=== PATIENT | male | born 1995 | race Caucasian/White ===

== ENCOUNTER 2017-01-06 19:11 | Emergency (ER) | payer BC, OTHER ==
[~2017-01-06] VITALS: Ht 182.9 cm; Wt 77.6 kg
[2017-01-06 19:16] VITALS: TEMP 36.7; Ht 182.9 cm; Wt 77.6 kg
--- NOTE | 2017-01-06 19:43 | EMERGENCY ROOM VISIT NOTE ---
History Report prepared by Bekah: Karina Pulido Under the Supervision of: Dr. Fadumo Campbell D.O. First contact with patient: 19:30 Chief Complaint: LACERATION/CUT (SUT/DERMABOND) Stated Complaint: GASH IN FOREHEAD Nursing Triage Summary: Patient states "I think I cut my..." Friend responded "He fell and cut his head." Denies LOC. Patient was drinking alcohol. 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 The patient was drinking alcohol earlier today when he fell face forward. He denies loss of consciousness. The patient also denies headache, neck pain, chest pain, and back pain. The patient states his tetanus shot is up to date. Pt brought in by friend. 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 A total of 10 systems reviewed and were otherwise negative. Past Medical & Surgical Medical Problems: (1) No Known Active Medical Problems Family History No pertinent family history Social History Smoking Status: Current Every Day Smoker Alcohol Use: heavy Marital Status: single Housing Status: lives with roommate Occupation Status: student Current/Historical Medications Scheduled PRN Cetirizine (Zyrtec), 10 MG PO DAILY PRN for Allergy Symptoms Allergies Coded Allergies: No Known Allergies (Unverified , 01/06/17) Physical Exam Vital Signs Date Time Temp Pulse Resp B/P Pulse Ox O2 Delivery O2 Flow Rate FiO2 01/07/17 02:12 91 111/89 01/07/17 01:04 92 14 108/49 94 Room Air 01/07/17 00:13 89 14 108/51 95 Room Air 01/06/17 23:29 90 01/06/17 23:15 90 14 127/45 95 Room Air 01/06/17 21:28 99 18 149/85 98 Room Air 01/06/17 19:16 36.7 100 16 136/88 96 Room Air Physical Exam GENERAL: alert, well appearing, well nourished, no distress, non-toxic EYE EXAM: No wilson signs, no raccoon eyes. normal conjunctiva, PERRL and EOM's grossly intact HEAD: Large subcutaneous laceration to forehead. OROPHARYNX: no exudate, no erythema, lips, buccal mucosa, and tongue normal and mucous membranes are moist NECK: No step off noted. supple, no nuchal rigidity, no adenopathy, non-tender LUNGS: Clear to auscultation. Normal chest wall mechanics HEART: no murmurs, S1 normal and S2 normal CHEST: No crepitus, no ecchymosis, no step off ABDOMEN: abdomen soft, non-tender, normo-active bowel sounds, no masses, no rebound or guarding. BACK: No step off. Back is symmetrical on inspection and there is no deformity, no midline tenderness, no CVA tenderness. SKIN: no rashes and no bruising UPPER EXTREMITIES: No evidence of trauma. upper extremities are grossly normal. LOWER EXTREMITIES: No evidence of trauma. No pitting edema. NEURO EXAM: Normal sensorium, cranial nerves II-XII grossly intact, normal speech, no gross weakness of arms, no gross weakness of legs. Gross sensation intact. Medical Decision & Procedures ER Provider Diagnostic Interpretation: Xray results per the radiologist and my interpretation. Other results have been interpreted by the radiologist and reviewed by me. HEAD CT NONCONTRAST CT DOSE: HISTORY: Trauma trauma TECHNIQUE: Multiaxial CT images of the head were performed without the use of intravenous contrast. Comparison: None. Findings: The paranasal sinuses and mastoid air cells are clear. The calvarium and skull base are intact. The ventricles and sulci are within normal limits. There is no mass, hematoma, midline shift, or acute infarct. Impression: No acute intracranial abnormality. Electronically signed by: Ta Fleming M.D. 01/06/2017 8:25 PM Dictated Date/Time: 01/06/2017 8:24 PM CHEST ONE VIEW PORTABLE CLINICAL HISTORY: trauma pain COMPARISON STUDY: No previous studies for comparison. FINDINGS: The bones soft tissues and hemidiaphragms are normal. The cardiomediastinal silhouette is normal. The lungs are clear. The pulmonary vasculature is normal. IMPRESSION: Negative chest. Electronically signed by: Ta Fleming M.D. 01/06/2017 8:14 PM Dictated Date/Time: 01/06/2017 8:[address] DOSE: 2569.59 mGy.cm HISTORY: Pain trauma TECHNIQUE: Multiaxial CT images of the cervical spine were performed and reformatted in the sagittal and coronal plane without the use of contrast. COMPARISON: None. FINDINGS: No fractures. No subluxation. Prevertebral soft tissues and the C1-C2 interval are intact. No pneumothorax. IMPRESSION: No fractures within the cervical spine. Electronically signed by: Ta Fleming M.D. 01/06/2017 8:26 PM Dictated Date/Time: 01/06/2017 8:25 PM Laboratory Results Test 01/06/17 21:30 Ethyl Alcohol mg/dL 257.0 mg/dl (0-3) Procedure Location: Forehead and Scalp Total length: 8 cm Complexity: Simple Verbal consent was obtained after the risks and benefits were explained, including but not limited to bleeding, scarring, infection, pain, and bone/joint /nerve damage. At this time, the risks of the procedure are less than the risks of NOT performing the procedure. A time out was taken and the correct patient and site identified. The skin was prepped with betadine. The target area was anesthetized with 8 ml of 1% lidocaine with epinephrine. Copious irrigation was performed using saline. The skin was re-prepped with betadine and a sterile field set. The wound was explored for foreign bodies and none found. Examination revealed no injury to deep structures such as tendons, bone, or significant blood vessels. Debridement was not performed. The wound edges were approximated using 4 arsen in scalp and 5, 5-0 simple interrupted nylon sutures in forehead region. Hemostasis and excellent approximation was achieved. Antibacterial ointment and a sterile dressing applied. Detailed wound care instructions and signs and symptoms of infection reviewed with the the patient. No complications and the patient tolerated the procedure well. ED Course 1932: The patient was evaluated in room A9B. A complete history and physical exam was performed. 2029: Lidocaine/Epinephrine 20 ml INFIL 2031: Laceration repair procedure. Please see above procedure note. 2103: The patient is waiting for a ride at this time. Clinically improving. 2124: The patient was signed out to Dr. Velasco at change of shift as he is still waiting for a sober ride. Medical Decision Ct's reassuring. Low suspicion for additional occult traumatic injury. Pt clinically improving here. No change in repeat exam. Impression Primary Impression: Laceration Additional Impressions: Closed head injury Alcohol intoxication Fall Scribe Attestation The scribe's documentation has been prepared under my direction and personally reviewed by me in its entirety. I confirm that the note above accurately reflects all work, treatment, procedures, and medical decision making performed by me. Departure Information Dispostion Still a Patient Patient Instructions [facility] Additional Instructions Please drink responsibly. Do not drink and drive. You have both stitches and arsen. These need to be removed in 7 days. If you develop headaches, vision changes, fevers, vomiting, dizziness, neck or back pain, chest pain, trouble breathing, or you have any other new or concerning symptoms, please return to the emergency room. Problem Qualifiers Additional Impressions: Closed head injury Encounter type: initial encounter Qualified Codes: S09.90XA - Unspecified injury of head, initial encounter Alcohol intoxication Complication of substance-induced condition: uncomplicated Qualified Codes: F10.120 - Alcohol abuse with intoxication, uncomplicated Fall Encounter type: initial encounter Qualified Codes: W19.XXXA - Unspecified fall, initial encounter
--- NOTE | 2017-01-06 20:16 | DIAGNOSTIC IMAGING REPORT ---
CHEST ONE VIEW PORTABLE CLINICAL HISTORY: trauma pain COMPARISON STUDY: No previous studies for comparison. FINDINGS: The bones soft tissues and hemidiaphragms are normal. The cardiomediastinal silhouette is normal. The lungs are clear. The pulmonary vasculature is normal. IMPRESSION: Negative chest. Electronically signed by: Ta Fleming M.D. 01/06/2017 8:14 PM Dictated Date/Time: 01/06/2017 8:14 PM
--- NOTE | 2017-01-06 20:27 | DIAGNOSTIC IMAGING REPORT ---
HEAD CT NONCONTRAST CT DOSE: HISTORY: Trauma trauma TECHNIQUE: Multiaxial CT images of the head were performed without the use of intravenous contrast. Comparison: None. Findings: The paranasal sinuses and mastoid air cells are clear. The calvarium and skull base are intact. The ventricles and sulci are within normal limits. There is no mass, hematoma, midline shift, or acute infarct. Impression: No acute intracranial abnormality. Electronically signed by: Ta Fleming M.D. 01/06/2017 8:25 PM Dictated Date/Time: 01/06/2017 8:24 PM
--- NOTE | 2017-01-06 20:28 | DIAGNOSTIC IMAGING REPORT ---
CERVICAL SPINE CT CT DOSE: 2569.59 mGy.cm HISTORY: Pain trauma TECHNIQUE: Multiaxial CT images of the cervical spine were performed and reformatted in the sagittal and coronal plane without the use of contrast. COMPARISON: None. FINDINGS: No fractures. No subluxation. Prevertebral soft tissues and the C1-C2 interval are intact. No pneumothorax. IMPRESSION: No fractures within the cervical spine. Electronically signed by: Ta Fleming M.D. 01/06/2017 8:26 PM Dictated Date/Time: 01/06/2017 8:25 PM
[2017-01-06] MEDS ORDERED: LIDOCAINE/EPINEPHRINE 1% 20 ML VIAL INFIL ONE (20:30)
[2017-01-06] MEDS ORDERED: CETI10TA84 PO (21:29)
[2017-01-07 01:04] VITALS: O2SAT 94
[2017-01-07 02:12] VITALS: BP 111/89; PULSE 91
--- NOTE | 2017-01-07 03:09 | EMERGENCY ROOM VISIT NOTE ---
ED Visit Note First contact with patient: 21:29 Patient was signed out to me following complete workup and being medically cleared awaiting for a sober friend or 6 AM in the morning at which time he would be sober. He was able to obtain a friend at 2 AM. The friend was present at bedside. Patient was able to get up and ambulate without difficulty. Friend's name was Tico and he agreed to assume care patient overnight. Patient will have the sutures out in 7 days. No drinking for the remainder of the night. He had no new complaints and was discharged in the care of Tico. Discussed with Pt concerning signs and symptoms to watch out for. Pt was instructed to follow up with their PCP and discussed with the patient their option to return to the ED at anytime for persistent or worsening symptoms. The appropriate anticipatory guidance and out-patient management, including indications for return to the emergency department, were explained at length to the patient and understood.
--- NOTE | 2017-01-09 08:28 | EDITING REQUIRED CODING QUERY ---
LENGTH OF LACERATION Dr. Campbell, To promote full compliance with coding requirements relating to patient care, physician participation is requested in all cases of chamfering machine operator uncertainty. Please assist us with the question(s) below: Please document the length of the Scalp and Forehead lacerations separately. Please type the length in cm within the parenthesis ( ) below. Scalp laceration is ( ) cm. Forehead laceration is ( ) cm. Thank you Bryson Tena
== END 2017-01-07 02:16 | disposition home or self-care (01) ==
LOC: C.EDB 19:15 → C.EDA 01-07 02:16
DX: S01.81XA Laceration without foreign body of other part of head, initial encounter (principal); S01.01XA Laceration without foreign body of scalp, initial encounter; F10.120 Alcohol abuse with intoxication, uncomplicated; W19.XXXA Unspecified fall, initial encounter; F17.200 Nicotine dependence, unspecified, uncomplicated